=== PATIENT | female | born 1995 | race Hispanic/Latino ===

== ENCOUNTER 2016-04-15 13:45 | Emergency (ER) | payer OTHER ==
[~2016-04-15 13:45] MED LIST: ALBU83IN INH; BUDE0.5S6 INH; LEVA500T PO; LISI10TA4 PO; PRED10TA FT; TYLE500T78 PO
[2016-04-15] MEDS ORDERED: dexameTHASONE 20 MG/5 ML VIAL (J1100) As Ordered ONE (15:02)
[2016-04-15] MEDS ORDERED: KETOROLAC 30 MG/ML VIAL (J1885) As Ordered ONE (15:03)
--- NOTE | 2016-04-15 17:14 | EDDOCDS ---
Nurse's Notes [facility] Name: Krystle Floyd Age: 21 yrs Sex: Female : 1995 Arrival Date: 04/15/2016 Time: 13:45 Bed 5 Private MD: TAMIKA Escalera Diagnosis: Acute pharyngitis Presentation: 04/15 13:49 Presenting complaint: Patient states: tonsils really swollen. symptoms started last srm night. vomited enroute to ED . stated hasnt been able to eat anything due to sore throat. Risk factors: Stridor is not present. Drooling is not present. Shortness of breath is not present. Cellulitis is not present. Adult Sepsis Screening: The patient does not have new or worsening altered mentation. Patient's respiratory rate is less than 22. Systolic blood pressure is greater than 100. Patient has a qSOFA score of 0- Negative Sepsis Screen. Suicide/Homicide risk assessment- the patient denies having any suicidal and/or homicidal ideations and does not present with any other emotional, behavioral or mental health complaints. Status: The patient is a dependent. Transition of care: patient was not received from another setting of care. 13:49 Method Of Arrival: Walkin/Carried/Asstd srm 13:49 Acuity: MIRA Level 4 srm Triage Assessment: 13:51 General: Appears in no apparent distress, Behavior is appropriate for age, cooperative. srm Pain: Pain currently is 8 out of 10 on a pain scale. HIV screening NA for this visit Offered previously. EENT: Reports swollen tonsils but throat pain only on the right. 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 Albuterol Inhl as needed 2. albuterol sulfate 2.5 mg /3 mL (0.083 %) Inhl nebu 3. lisinopril 10 mg Oral tab 1 tab once daily has not taken in 1 week 4. Advair Diskus 250-50 mcg/dose Inhl dsdv 1 puff 2 times per day - PMHx: Asthma; Hypertension; - PSHx: ; - Social history: Smoking status: Patient states was never smoker of tobacco. No barriers to communication noted, The patient speaks fluent Czech, Speaks appropriately for age. - Family history: Not pertinent. - : The pt / caregiver states he / she is not on anticoagulants. Home medication list is obtained from the patient. - Exposure Risk Screening:: None identified. Screenin:06 Screening information is obtained from the patient. Fall risk: No risks identified. pml Assistance ADL's: requires no assistance with activities of daily living. Abuse/DV Screen: The patient / caregiver reports he/she is: not in a situation that causes fear, pain or injury. Nutritional screening: No deficits noted. Advance Directives: Currently, there is no health care proxy. home support is adequate. Assessment: 15:06 General: Appears in no apparent distress, Behavior is appropriate for age, cooperative. pml Pain: Location: throat Pain currently is 8 out of 10 on a pain scale. Neurological: No deficits noted. EENT: Throat has enlarged tonsils bilaterally with gag reflex present. Cardiovascular: Capillary refill < 3 seconds. Respiratory: Airway is patent Respiratory effort is even, unlabored. Derm: Skin is pink, warm & dry. 15:25 General: tolerating sips of PO fluid. pml 17:10 General: Patient instructed on discharge instructions. Patient asked if there were any b questions regarding discharge, patient stated no. IV discontinued per hospital policy. Patient signed discharge instructions. Patient discharged in stable condition. . Vital Signs: 13:46 BP 139 / 78; Pulse 127; Resp 18 S; Temp 98.6(O); Pulse Ox 97% on R/A; Weight 90.72 kg dd6 (R); Height 4 ft. 11 in. (149.86 cm) (R); 17:10 BP 130 / 78; Pulse 88; Resp 18; Temp 98.5(O); Pulse Ox 98% on R/A; Pain 0/10; jmb 13:46 Body Mass Index 40.39 (90.72 kg, 149.86 cm) dd6 Vitals: 13:46 Log In Time: April 15, 2016 at 13:44. dd6 15:06 Strep Screen is obtained and tested: Positive. [facility] ED Course: 13:46 Patient visited by Rohan Saldaña PCA. dd6 13:46 TAMIKA Escalera is Private Physician. dd6 13:46 Patient moved to Waiting dd6 13:47 Patient moved to Pre RCE dd6 13:50 Triage Initiated srm 14:20 Sheela Rose,RN is Primary Nurse. dy 14:20 Patient moved to 5 dy 14:23 Chantell Cortez MD is Attending Physician. sd1 14:23 Patient visited by Chantell Cortez MD. sd1 14:54 [facility] Payment Agreement was scanned into [employer] and attached to record. lg 15:06 The patient / caregiver is instructed regarding the plan of care and ED course. Patient pml has correct armband on for positive identification. Placed in gown. Bed in low position. Call light in reach. Side rails up X2. 15:07 Patient visited by Sheela Rose RN. pml 15:25 Patient visited by Sheela Rose RN. pml 16:25 Patient visited by Sagrario Tang PCA. [facility] 16:57 [facility] [place]erral Physician. sd1 17:10 No IV's were initiated during this patient's visit. No procedures done that require jmb assistance. Administered Medications: 15:06 Drug: NS 0.9% 1000 ml [sodium chloride 0.9 % injection solution] Route: IV; Rate: pml bolus; Site: left antecubital; 15:06 Drug: ketorolac 30 mg [ketorolac 30 mg/mL (1 mL) injection solution (1 mL)] Route: IVP; pml Site: left antecubital; 15:06 Drug: Dexamethasone 10 mg [dexamethasone 4 mg/mL injection solution] Route: IV; Rate: pml bolus; Site: left antecubital; 17:10 Not Given (Patient Refused): morphine 4 mg IVP once jmb Order Results: There are currently no results for this order. Outcome: 16:57 Discharge ordered by Provider. sd1 17:10 Discharge Assessment: Patient awake, alert and oriented x 3. No cognitive and/or jmb functional deficits noted. Patient verbalized understanding of disposition instructions. Patient awake and alert. obeys commands, Oriented to person, place and time. Patient verbalized understanding of disposition instructions. Patient has no functional deficits. patient administered narcotics - no. The following High Risk Discharge criteria are identified: None. Discharged to home ambulatory. Condition: stable. Discharge instructions given to patient, Instructed on discharge instructions, follow up and referral plans. medication usage, Demonstrated understanding of instructions, medications, Pt was receptive of discharge instructions/ teaching. Prescriptions given X 3. No special radiology studies were completed. Property sent home with patient. 17:13 Patient left the ED. asha Signatures: Chantell Cortez MD MD sd1 Chely Person, RN RN srm Lizette Real, Reg Reg lg Virgilio Salas, RN RN Rohan Villalobos, CONTRACTOR GENERAL BUILDING CONTRACTOR GENERAL BUILDING dd6 Sheela Rose,RN Brent EldridgeRN RN Sagrario Lares, [facility] CONTRACTOR GENERAL BUILDING jlf MTDD
--- NOTE | 2016-04-15 17:14 | EDDOCDS ---
Physician Documentation [facility] Name: Krystle Floyd Age: 21 yrs Sex: Female : 1995 Arrival Date: 04/15/2016 Time: 13:45 Bed 5 Private MD: TAMIKA Escalera Disposition: 04/15/16 16:57 Discharged to Home/Self Care. Impression: Acute pharyngitis. - Condition is Stable. - Discharge Instructions: Pharyngitis, Pharyngitis, [id number]. - Prescriptions for Zithromax Z- Edgar 250 mg Oral Tablet - take 1 tablet by ORAL route as directed for 5 days Day 1- take two tablets once. Day 2, 3, 4 , 5 take one tablet once daily.; 6 tablet. Lidocaine Viscous - take 15 milliliter by ORAL route every 4 hours swish and spit only - do not swallow; 100 milliliter. Ibuprofen 600 mg Oral Tablet - take 1 tablet by ORAL route every 6 hours As needed take with food; 30 tablet. - Medication Reconciliation, Local Pharmacy Hours form. - Follow up: TAMIKA Escalera; When: 1 - 2 days. - Problem is new. - Symptoms have improved. Historical: - Allergies: Peanut; PENICILLINS; SHELLFISH; walnuts; - Home Meds: 1. Albuterol Inhl as needed 2. albuterol sulfate 2.5 mg /3 mL (0.083 %) Inhl nebu 3. lisinopril 10 mg Oral tab 1 tab once daily has not taken in 1 week 4. Advair Diskus 250-50 mcg/dose Inhl dsdv 1 puff 2 times per day - PMHx: Asthma; Hypertension; - PSHx: ; - Social history: Smoking status: Patient states was never smoker of tobacco. No barriers to communication noted, The patient speaks fluent Upper Sorbian, Speaks appropriately for age. - Family history: Not pertinent. - : The pt / caregiver states he / she is not on anticoagulants. Home medication list is obtained from the patient. - Exposure Risk Screening:: None identified. 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 11 in. (149.86 cm) (R); 17:10 BP 130 / 78; Pulse 88; Resp 18; Temp 98.5(O); Pulse Ox 98% on R/A; Pain 0/10; jmb 13:46 Body Mass Index 40.39 (90.72 kg, 149.86 cm) dd6 MDM: 13:52 Strep Screen, Nursing ordered. dt4 14:32 NS 0.9% 1000 ml IV at bolus once ordered. sd1 14:32 ketorolac 30 mg IVP once ordered. sd1 14:32 Dexamethasone 10 mg IV at bolus once ordered. sd1 14:37 Financial registration complete. lg 14:54 [facility] Payment Agreement was scanned into [employer] and attached to record. lg 15:11 Fluid Challenge ordered. sd1 16:13 morphine 4 mg IVP once ordered. sd1 Administered Medications: 15:06 Drug: NS 0.9% 1000 ml [sodium chloride 0.9 % injection solution] Route: IV; Rate: pml bolus; Site: left antecubital; 15:06 Drug: ketorolac 30 mg [ketorolac 30 mg/mL (1 mL) injection solution (1 mL)] Route: IVP; pml Site: left antecubital; 15:06 Drug: Dexamethasone 10 mg [dexamethasone 4 mg/mL injection solution] Route: IV; Rate: pml bolus; Site: left antecubital; 17:10 Not Given (Patient Refused): morphine 4 mg IVP once asha Signatures: Chantell Cortez MD MD sd1 Chely Person, RN Lizette Esteves, Reg Reg lg Sheela Rose RN RN pml Becker, Joshua, RN RN jmb Tschudi, Diane, PA-C PA-C dt4 The chart was reviewed and I authenticate all verbal orders and agree with the evaluation and treatment provided.Attachments: 14:54 [facility] Payment Agreement lg MTDD
--- NOTE | 2016-04-17 18:14 | EDDOCDS ---
Physician Documentation [facility] Name: Krystle Floyd Age: 21 yrs Sex: Female : 1995 Arrival Date: 04/15/2016 Time: 13:45 Bed 5 Private MD: TAMIKA Escalera Disposition: 04/15/16 16:57 Discharged to Home/Self Care. Impression: Acute pharyngitis. - Condition is Stable. - Discharge Instructions: Pharyngitis, Pharyngitis, Bkaa-[id number]-[id number]. - Prescriptions for Zithromax Z- Edgar 250 mg Oral Tablet - take 1 tablet by ORAL route as directed for 5 days Day 1- take two tablets once. Day 2, 3, 4 , 5 take one tablet once daily.; 6 tablet. Lidocaine Viscous - take 15 milliliter by ORAL route every 4 hours swish and spit only - do not swallow; 100 milliliter. Ibuprofen 600 mg Oral Tablet - take 1 tablet by ORAL route every 6 hours As needed take with food; 30 tablet. - Medication Reconciliation, Local Pharmacy Hours form. - Follow up: TAMIKA Escalera; When: 1 - 2 days. - Problem is new. - Symptoms have improved. Historical: - Allergies: Peanut; PENICILLINS; SHELLFISH; walnuts; - Home Meds: 1. Albuterol Inhl as needed 2. albuterol sulfate 2.5 mg /3 mL (0.083 %) Inhl nebu 3. lisinopril 10 mg Oral tab 1 tab once daily has not taken in 1 week 4. Advair Diskus 250-50 mcg/dose Inhl dsdv 1 puff 2 times per day - PMHx: Asthma; Hypertension; - PSHx: ; - Social history: Smoking status: Patient states was never smoker of tobacco. No barriers to communication noted, The patient speaks fluent Greenlandic, Speaks appropriately for age. - Family history: Not pertinent. - : The pt / caregiver states he / she is not on anticoagulants. Home medication list is obtained from the patient. - Exposure Risk Screening:: None identified. 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 11 in. (149.86 cm) (R); 17:10 BP 130 / 78; Pulse 88; Resp 18; Temp 98.5(O); Pulse Ox 98% on R/A; Pain 0/10; jmb 13:46 Body Mass Index 40.39 (90.72 kg, 149.86 cm) dd6 MDM: 13:52 Strep Screen, Nursing ordered. dt4 14:32 NS 0.9% 1000 ml IV at bolus once ordered. sd1 14:32 ketorolac 30 mg IVP once ordered. sd1 14:32 Dexamethasone 10 mg IV at bolus once ordered. sd1 14:37 Financial registration complete. 14:54 [facility] Payment Agreement was scanned into [employer] and attached to record. lg 15:11 Fluid Challenge ordered. sd1 16:13 morphine 4 mg IVP once ordered. sd1 04/16 08:37 T-Sheet-- Draft Copy was scanned into [employer] and attached to record. se Administered Medications: 04/15 15:06 Drug: NS 0.9% 1000 ml [sodium chloride 0.9 % injection solution] Route: IV; Rate: pml bolus; Site: left antecubital; 15:06 Drug: ketorolac 30 mg [ketorolac 30 mg/mL (1 mL) injection solution (1 mL)] Route: IVP; pml Site: left antecubital; 15:06 Drug: Dexamethasone 10 mg [dexamethasone 4 mg/mL injection solution] Route: IV; Rate: pml bolus; Site: left antecubital; 17:10 Not Given (Patient Refused): morphine 4 mg IVP once asha Signatures: Chantell Cortez MD MD sd1 Chely Person RN Lizette Esteves, Ellis Reg lg Sheela Rose RN RN pml Becker, Joshua, RN RN jmb Tschudi, Diane, PA-C PA-C dt4 Chantell Dacosta [facility] The chart was reviewed and I authenticate all verbal orders and agree with the evaluation and treatment provided.Attachments: 14:54 [facility] Payment Agreement 04/16 08:37 T-Sheet-- Draft Copy [facility] Chart Complete MTDD
--- NOTE | 2016-04-17 18:14 | EDDOCDS ---
Nurse's Notes [facility] Name: Krystle Floyd Age: 21 yrs Sex: Female : 1995 Arrival Date: 04/15/2016 Time: 13:45 Bed 5 Private MD: TAMIKA Escalera Diagnosis: Acute pharyngitis Presentation: 04/15 13:49 Presenting complaint: Patient states: tonsils really swollen. symptoms started last srm night. vomited enroute to ED . stated hasnt been able to eat anything due to sore throat. Risk factors: Stridor is not present. Drooling is not present. Shortness of breath is not present. Cellulitis is not present. Adult Sepsis Screening: The patient does not have new or worsening altered mentation. Patient's respiratory rate is less than 22. Systolic blood pressure is greater than 100. Patient has a qSOFA score of 0- Negative Sepsis Screen. Suicide/Homicide risk assessment- the patient denies having any suicidal and/or homicidal ideations and does not present with any other emotional, behavioral or mental health complaints. Status: The patient is a dependent. Transition of care: patient was not received from another setting of care. 13:49 Method Of Arrival: Walkin/Carried/Asstd srm 13:49 Acuity: MIRA Level 4 srm Triage Assessment: 13:51 General: Appears in no apparent distress, Behavior is appropriate for age, cooperative. srm Pain: Pain currently is 8 out of 10 on a pain scale. HIV screening NA for this visit Offered previously. EENT: Reports swollen tonsils but throat pain only on the right. 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 Albuterol Inhl as needed 2. albuterol sulfate 2.5 mg /3 mL (0.083 %) Inhl nebu 3. lisinopril 10 mg Oral tab 1 tab once daily has not taken in 1 week 4. Advair Diskus 250-50 mcg/dose Inhl dsdv 1 puff 2 times per day - PMHx: Asthma; Hypertension; - PSHx: ; - Social history: Smoking status: Patient states was never smoker of tobacco. No barriers to communication noted, The patient speaks fluent [place]inean, Speaks appropriately for age. - Family history: Not pertinent. - : The pt / caregiver states he / she is not on anticoagulants. Home medication list is obtained from the patient. - Exposure Risk Screening:: None identified. Screenin:06 Screening information is obtained from the patient. Fall risk: No risks identified. pml Assistance ADL's: requires no assistance with activities of daily living. Abuse/DV Screen: The patient / caregiver reports he/she is: not in a situation that causes fear, pain or injury. Nutritional screening: No deficits noted. Advance Directives: Currently, there is no health care proxy. home support is adequate. Assessment: 15:06 General: Appears in no apparent distress, Behavior is appropriate for age, cooperative. pml Pain: Location: throat Pain currently is 8 out of 10 on a pain scale. Neurological: No deficits noted. EENT: Throat has enlarged tonsils bilaterally with gag reflex present. Cardiovascular: Capillary refill < 3 seconds. Respiratory: Airway is patent Respiratory effort is even, unlabored. Derm: Skin is pink, warm & dry. 15:25 General: tolerating sips of PO fluid. pml 17:10 General: Patient instructed on discharge instructions. Patient asked if there were any b questions regarding discharge, patient stated no. IV discontinued per hospital policy. Patient signed discharge instructions. Patient discharged in stable condition. . Vital Signs: 13:46 BP 139 / 78; Pulse 127; Resp 18 S; Temp 98.6(O); Pulse Ox 97% on R/A; Weight 90.72 kg dd6 (R); Height 4 ft. 11 in. (149.86 cm) (R); 17:10 BP 130 / 78; Pulse 88; Resp 18; Temp 98.5(O); Pulse Ox 98% on R/A; Pain 0/10; jmb 13:46 Body Mass Index 40.39 (90.72 kg, 149.86 cm) dd6 Vitals: 13:46 Log In Time: April 15, 2016 at 13:44. dd6 15:06 Strep Screen is obtained and tested: Positive. [facility] ED Course: 13:46 Patient visited by Rohan Saldaña PCA. dd6 13:46 TAMIKA Escalera is Private Physician. dd6 13:46 Patient moved to Waiting dd6 13:47 Patient moved to Pre RCE dd6 13:50 Triage Initiated srm 14:20 Sheela Rose,RN is Primary Nurse. dy 14:20 Patient moved to 5 dy 14:23 Chantell Cortez MD is Attending Physician. sd1 14:23 Patient visited by Chantell Cortez MD. sd1 14:54 [facility] Payment Agreement was scanned into [employer] and attached to record. lg 15:06 The patient / caregiver is instructed regarding the plan of care and ED course. Patient pml has correct armband on for positive identification. Placed in gown. Bed in low position. Call light in reach. Side rails up X2. 15:07 Patient visited by Sheela Rose RN. pml 15:25 Patient visited by Sheela Rose RN. pml 16:25 Patient visited by Sagrario Tang PCA. [facility] 16:57 Jw [facility] is Referral Physician. sd1 17:10 No IV's were initiated during this patient's visit. No procedures done that require jmb assistance. 04/16 08:37 T-Sheet-- Draft Copy was scanned into [employer] and attached to record. se Administered Medications: 04/15 15:06 Drug: NS 0.9% 1000 ml [sodium chloride 0.9 % injection solution] Route: IV; Rate: pml bolus; Site: left antecubital; 15:06 Drug: ketorolac 30 mg [ketorolac 30 mg/mL (1 mL) injection solution (1 mL)] Route: IVP; pml Site: left antecubital; 15:06 Drug: Dexamethasone 10 mg [dexamethasone 4 mg/mL injection solution] Route: IV; Rate: pml bolus; Site: left antecubital; 17:10 Not Given (Patient Refused): morphine 4 mg IVP once jmb Order Results: There are currently no results for this order. Outcome: 16:57 Discharge ordered by Provider. sd1 17:10 Discharge Assessment: Patient awake, alert and oriented x 3. No cognitive and/or jmb functional deficits noted. Patient verbalized understanding of disposition instructions. Patient awake and alert. obeys commands, Oriented to person, place and time. Patient verbalized understanding of disposition instructions. Patient has no functional deficits. patient administered narcotics - no. The following High Risk Discharge criteria are identified: None. Discharged to home ambulatory. Condition: stable. Discharge instructions given to patient, Instructed on discharge instructions, follow up and referral plans. medication usage, Demonstrated understanding of instructions, medications, Pt was receptive of discharge instructions/ teaching. Prescriptions given X 3. No special radiology studies were completed. Property sent home with patient. 17:13 Patient left the ED. asha Signatures: Chantell Cortez MD MD sd1 Chely Person, RN RN [facility] Lizette Real, Ellis Reg Virgilio Salas, RN Rohan Doe, LOFTER LOFTER dd6 Sheela RoseRN Brent EldridgeRN Sagrario Cisneros, LOFTER LOFTER f Chantell Dacosta Chart Complete [facility]
--- NOTE | 2016-04-17 18:14 | EDDOCDS ---
Physician Documentation [facility] Name: Krystle Floyd Age: 21 yrs Sex: Female : 1995 Arrival Date: 04/15/2016 Time: 13:45 Bed 5 Private MD: TAMIKA Escalera Disposition: 04/15/16 16:57 Discharged to Home/Self Care. Impression: Acute pharyngitis. - Condition is Stable. - Discharge Instructions: Pharyngitis, Pharyngitis, [id number]. - Prescriptions for Zithromax Z- Edgar 250 mg Oral Tablet - take 1 tablet by ORAL route as directed for 5 days Day 1- take two tablets once. Day 2, 3, 4 , 5 take one tablet once daily.; 6 tablet. Lidocaine Viscous - take 15 milliliter by ORAL route every 4 hours swish and spit only - do not swallow; 100 milliliter. Ibuprofen 600 mg Oral Tablet - take 1 tablet by ORAL route every 6 hours As needed take with food; 30 tablet. - Medication Reconciliation, Local Pharmacy Hours form. - Follow up: TAMIKA Escalera; When: 1 - 2 days. - Problem is new. - Symptoms have improved. Historical: - Allergies: Peanut; PENICILLINS; SHELLFISH; walnuts; - Home Meds: 1. Albuterol Inhl as needed 2. albuterol sulfate 2.5 mg /3 mL (0.083 %) Inhl nebu 3. lisinopril 10 mg Oral tab 1 tab once daily has not taken in 1 week 4. Advair Diskus 250-50 mcg/dose Inhl dsdv 1 puff 2 times per day - PMHx: Asthma; Hypertension; - PSHx: ; - Social history: Smoking status: Patient states was never smoker of tobacco. No barriers to communication noted, The patient speaks fluent Yakut, Speaks appropriately for age. - Family history: Not pertinent. - : The pt / caregiver states he / she is not on anticoagulants. Home medication list is obtained from the patient. - Exposure Risk Screening:: None identified. 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 11 in. (149.86 cm) (R); 17:10 BP 130 / 78; Pulse 88; Resp 18; Temp 98.5(O); Pulse Ox 98% on R/A; Pain 0/10; jmb 13:46 Body Mass Index 40.39 (90.72 kg, 149.86 cm) dd6 MDM: 13:52 Strep Screen, Nursing ordered. dt4 14:32 NS 0.9% 1000 ml IV at bolus once ordered. sd1 14:32 ketorolac 30 mg IVP once ordered. sd1 14:32 Dexamethasone 10 mg IV at bolus once ordered. sd1 14:37 Financial registration complete. 14:54 [facility] Payment Agreement was scanned into [employer] and attached to record. lg 15:11 Fluid Challenge ordered. sd1 16:13 morphine 4 mg IVP once ordered. sd1 04/16 08:37 T-Sheet-- Draft Copy was scanned into [employer] and attached to record. se Administered Medications: 04/15 15:06 Drug: NS 0.9% 1000 ml [sodium chloride 0.9 % injection solution] Route: IV; Rate: pml bolus; Site: left antecubital; 15:06 Drug: ketorolac 30 mg [ketorolac 30 mg/mL (1 mL) injection solution (1 mL)] Route: IVP; pml Site: left antecubital; 15:06 Drug: Dexamethasone 10 mg [dexamethasone 4 mg/mL injection solution] Route: IV; Rate: pml bolus; Site: left antecubital; 17:10 Not Given (Patient Refused): morphine 4 mg IVP once asha Signatures: Chantell Cortez MD MD sd1 Chely Person RN Lizette Esteves, Ellis Reg lg Sheela Rose RN RN pml Becker, Joshua, RN RN jmb Tschudi, Diane, PA-C PA-C dt4 Chantell Dacosta [facility] The chart was reviewed and I authenticate all verbal orders and agree with the evaluation and treatment provided.Attachments: 14:54 [facility] Payment Agreement 04/16 08:37 T-Sheet-- Draft Copy [facility] Chart Complete MTDD
== END 2016-04-15 17:13 | disposition home or self-care (01) ==
LOC: M ED 13:45
DX: J02.0 Streptococcal pharyngitis (principal); J45.909 Unspecified asthma, uncomplicated; I10 Essential (primary) hypertension; Z79.51 Long term (current) use of inhaled steroids; Z79.899 Other long term (current) drug therapy; Z91.010 Allergy to peanuts; Z88.0 Allergy status to penicillin; Z91.013 Allergy to seafood
CPT/HCPCS: 87880; 96374; 96375; 99283; J1100; J1885